=== PATIENT | female | born 1990 | race Caucasian/White ===

== ENCOUNTER → 2017-06-17 | Outpatient (CLI) | payer OTHER ==
[~2017-06-17] MED LIST: SUBOXONE 8 MG-1 EAC3 SUBLING
[2017-06-17 12:17] LABS: ABSOLUTE EOSINOPHILS 0.2 thou/uL (0.0-0.7); ABSOLUTE LYMPHOCYTES 1.6 thou/uL (0.8-5.3); ABSOLUTE MONOCYTES 0.4 thou/uL (0.0-1.2); BASOPHILS 0.6 %; EOSINOPHILS 4.4 %; HEMOGLOBIN 13.2 gm/dL (12.0-15.0); MCH 32.9 pg (26.0-34.0); MCHC 33.9 g/dL (28.0-37.0); MONOCYTES 6.8 %; MPV 7.4 fl. (7.2-11.1); NUCLEATED RBCS 0 /100WBC; PLATELET COUNT* 187 thou/uL (150-400); POLYS 57.2 %; RBC 4.01 mil/uL (4.20-5.00); RDW-CV 13.4 % (10.5-14.5); WBC 5.3 thou/uL (4.0-11.0)
[2017-06-17 12:29] LABS: ALBUMIN 3.5 g/dL (3.4-5.0); CALCIUM 8.3 mg/dL (8.5-10.1); CREATININE 0.7 mg/dL (0.6-1.3); POTASSIUM 4.3 mmol/L (3.5-5.1); TOTAL BILIRUBIN 0.2 mg/dL (<0.1-1.0); TOTAL PROTEIN 6.9 g/dL (6.4-8.2)
[2017-06-17 12:47] LABS: % SATURATION 11 % (20-39); IRON 42 ug/dL (50-175)
[2017-06-18 02:07] LABS: HIV-1/HIV-2 ANTIBODY Non Reactive (Non Reactive)
== END ==
LOC: M.LAB 11:27
DX: B18.2 Chronic viral hepatitis C (principal)

== ENCOUNTER 2019-06-20 16:50 | Emergency (ER) | payer OTHER ==
[~2019-06-20] VITALS: Ht 172.7 cm; Wt 74.8 kg
[2019-06-20] MEDS ORDERED: CELEXA 20 MG TA20 MG PO (17:07)
[2019-06-20] MEDS ORDERED: KAPSPARGO SPRIN25 MG PO (17:07)
[2019-06-20] MEDS ORDERED: FLEXERIL PO (19:28)
[2019-06-20] MEDS ORDERED: NAPROSYN500 MG PO (19:29)
[2019-06-20 19:40] VITALS: BP 115/68
== END 2019-06-20 19:40 | disposition home or self-care (01) ==
LOC: M.ERS 16:50
DX: S30.0XXA Contusion of lower back and pelvis, initial encounter (principal); Z90.89 Acquired absence of other organs; Z86.19 Personal history of other infectious and parasitic diseases; V80.010A Animal-rider injured by fall from or being thrown from horse in noncollision accident, initial encounter; Y93.89 Activity, other specified; Y92.89 Other specified places as the place of occurrence of the external cause; Y99.8 Other external cause status

== ENCOUNTER → 2019-10-12 | Outpatient (CLI) | payer OTHER ==
[~2019-10-12] MED LIST changes: +CELEXA 20 MG TA20 MG PO; +FLEXERIL PO; +KAPSPARGO SPRIN25 MG PO; +NAPROSYN500 MG PO
== END ==
LOC: M.LAB 11:33
PROVIDERS: ATTEND Family Medicine
DX: O99.321 Drug use complicating pregnancy, first trimester (principal); F11.20 Opioid dependence, uncomplicated; Z3A.01 Less than 8 weeks gestation of pregnancy

== ENCOUNTER → 2020-02-06 | Outpatient (CLI) | payer OTHER | LOC: M.LAB 11:42 | PROVIDERS: ATTEND Family Medicine | DX: Z13.29 Encounter for screening for other suspected endocrine disorder (principal) ==